=== PATIENT | male | born 1985 | race Caucasian/White ===

== ENCOUNTER 2018-12-09 05:35 | Day surgery (SDC) | payer OTHER ==
[~2018-12-09 05:35] MED LIST: ATIVAN2 M1 PO; CHLORPROMAZINE200 MG PO; OMEPRAZOLE PO; RANITIDINE HCL300 M1 PO; RESTORIL30 M1 PO; ZYPREXA15 MG PO
== END 2018-12-09 10:50 | disposition home or self-care (01) ==
LOC: CIR.AMB 05:35
DX: K60.5 Anorectal fistula (principal); K92.1 Melena